=== PATIENT | male | born 1995 | race Caucasian/White ===

== ENCOUNTER 2017-11-07 10:01 | Emergency (ER) | payer OTHER ==
[~2017-11-07] VITALS: Ht 172.7 cm; Wt 81.7 kg
[~2017-11-07 10:01] MED LIST: ATOM10 PO; ATOM60 PO; BENZ100A PO; Benadryl25 MG PO; CARB100ER PO; CARBAMAZEPINE200 M2 PO; CORTISOL PO; CORTISONE PO; Cortef5 MG PO; DEXT30SU PO; DIPH50 PO; DIVA125EC PO; DIVA250EC PO; DIVA500EC PO; HYDCOR10 PO; INTUNIV3 MG PO; IRON150C PO; LEVSOD125 PO; LEVSOD25 PO; LEVSOD50 PO; LOPE2C PO; MELA3 PO; METPRE4DP PO; Motrin600 MG PO; NAPR500 PO; Norco 5-325 Ta1 EACH PO; ONDA4ODT MM; RISP.5 PO; RISP1 PO; Strattera80 MG PO; Synthroid175 MCG PO; TESTOSTERONE; TRAZ100 PO; TRAZ50 PO; VITAMIN D3-ALO1 EACH PO; VITAMIN D31000 UNIT PO; Zithromax250 MG PO; [UNRECOGNIZED DRUG - OTHER] PO; [UNRECOGNIZED DRUG - REMARK]
[2017-11-07] MEDS ORDERED: ANDRODERM1 EAC1 TD (10:37)
[2017-11-07] MEDS ORDERED: CHOL10002 (10:39)
[2017-11-07] MEDS ORDERED: ATOM40 PO (10:39)
[2017-11-07] MEDS ORDERED: INTUNIV3 MG PO (10:40)
[2017-11-07] MEDS ORDERED: DIPH50 PO (10:41)
[2017-11-07] MEDS ORDERED: CARNITOR PO (10:42)
[2017-11-07 12:53] LABS: BASOPHILS ABSOLUTE AUTO 0.03 K/mm3 (0.00-0.23); BASOPHILS PERCENT AUTO 0 % (0-2); EOSINOPHILS PERCENT AUTO 1 % (0-6); Hematocrit 44.2 % (37.0-53.0); Hemoglobin 15.3 g/dL (13.5-17.5); IMMATURE GRAN ABSOLUTE AUTO 0.01 K/mm3 (0.00-0.10); IMMATURE GRAN PERCENT AUTO 0 % (0-1); LYMPHOCYTES ABSOLUTE AUTO 2.95 K/mm3 (0.84-5.20); LYMPHOCYTES PERCENT AUTO 42 % (21-46); MONOCYTES ABSOLUTE AUTO 0.74 K/mm3 (0.16-1.47); MONOCYTES PERCENT AUTO 10 % (4-13); Mean Corpuscular HGB 29.4 pg (26.0-34.0); Mean Corpuscular HGB Conc 34.6 g/dL (31.5-36.5); Mean Corpuscular Volume 85 fL (80-100); Mean Platelet Volume 10.2 fL (9.1-12.4); NEUTROPHILS ABSOLUTE AUTO 3.28 K/mm3 (1.96-9.15); NEUTROPHILS PERCENT AUTO 46 % (41-73); Platelet Count 224 K/mm3 (150-400); RDW Coefficient Variation 12.4 % (11.7-14.2); Red Blood Cell Count 5.21 M/mm3 (4.30-5.90); White Blood Cell Count 7.11 K/mm3 (4.00-11.30)
[2017-11-07 13:21] LABS: Alanine Aminotransfer (ALT/SGP 61 U/L (12-78); Albumin, Blood 3.5 g/dL (3.4-5.0); Alk Phos 71 U/L (50-136); Anion Gap 2 mmol/L (6-16); Aspartate Aminotrans (AST/SGOT 29 U/L (12-37); Bilirubin, Total 0.2 mg/dL (0.1-1.0); Blood Urea Nitrogen 13 mg/dL (8-24); Bun/Creatinine Ratio 14.8 (12.0-20.0); CO2, Blood 31 mmol/L (21-32); Chloride, Blood 105 mmol/L (98-108); Creatinine, Blood 0.88 mg/dL (0.60-1.20); Globulin, Blood 3.5 g/dL (2.2-4.0); Glomerular Filtration Rate >60 (60-); Glucose, Blood 78 mg/dL (70-99); Potassium, Blood 4.7 mmol/L (3.5-5.5); Sodium, Blood 138 mmol/L (136-145)
[2017-11-07 14:15] LABS: Valproic Acid 74.9 ug/mL (50.0-100.0)
== END 2017-11-07 14:47 | disposition home or self-care (01) ==
LOC: ER 10:01
PROVIDERS: Emergency Medicine; Physician Assistant
DX: R07.9 Chest pain, unspecified (principal); G40.909 Epilepsy, unspecified, not intractable, without status epilepticus; E72.20 Disorder of urea cycle metabolism, unspecified; Z88.8 Allergy status to other drugs, medicaments and biological substances; Z79.899 Other long term (current) drug therapy
CPT/HCPCS: 36415; 71045; 80053; 80164; 82140; 84484; 85025; 93005; 93010; 99284

== ENCOUNTER 2019-03-07 20:35 | Emergency (ER) | payer OTHER ==
[~2019-03-07] VITALS: Ht 172.7 cm; Wt 86.2 kg
[~2019-03-07 20:35] MED LIST changes: +ANDRODERM1 EAC1 TD; +ATOM40 PO; +CARNITOR PO; +CHOL10002; +LEVSOD100 PO; -Synthroid175 MCG PO
[2019-03-07] MEDS ORDERED: RISP.5 PO (20:59)
[2019-03-07] MEDS ORDERED: ANDRODERM1 EACH TD (21:05)
[2019-03-07] MEDS ORDERED: Prozac20 MG (21:06)
[2019-03-07] MEDS ORDERED: CARNITOR PO (21:06)
[2019-03-07] MEDS ORDERED: LAMO100 PO (21:07)
== END 2019-03-07 22:20 | disposition home or self-care (01) ==
LOC: ER 20:35
DX: F42.9 Obsessive-compulsive disorder, unspecified (principal); Z88.8 Allergy status to other drugs, medicaments and biological substances; Z79.899 Other long term (current) drug therapy
CPT/HCPCS: 99284; Q3014

== ENCOUNTER 2019-06-20 20:37 | Emergency (ER) | payer OTHER ==
[~2019-06-20] VITALS: Ht 172.7 cm; Wt 90.7 kg
[~2019-06-20 20:37] MED LIST changes: +ANDRODERM1 EACH TD; +LAMO100 PO; +Prozac20 MG
[2019-06-20] MEDS ORDERED: DIVA250EC PO ×2 (23:08)
[2019-06-20 23:44] LABS: BASOPHILS ABSOLUTE AUTO 0.08 K/mm3 (0.00-0.23); BASOPHILS PERCENT AUTO 1 % (0-2); EOSINOPHILS ABSOLUTE AUTO 0.12 K/mm3 (0.00-0.68); EOSINOPHILS PERCENT AUTO 1 % (0-6); Hematocrit 46.5 % (37.0-53.0); Hemoglobin 15.5 g/dL (13.5-17.5); IMMATURE GRAN ABSOLUTE AUTO 0.04 K/mm3 (0.00-0.10); IMMATURE GRAN PERCENT AUTO 0 % (0-1); LYMPHOCYTES ABSOLUTE AUTO 3.61 K/mm3 (0.84-5.20); LYMPHOCYTES PERCENT AUTO 38 % (21-46); MONOCYTES ABSOLUTE AUTO 0.82 K/mm3 (0.16-1.47); MONOCYTES PERCENT AUTO 9 % (4-13); Mean Corpuscular HGB 29.7 pg (26.0-34.0); Mean Corpuscular HGB Conc 33.3 g/dL (31.5-36.5); Mean Corpuscular Volume 89 fL (80-100); NEUTROPHILS ABSOLUTE AUTO 4.79 K/mm3 (1.96-9.15); NEUTROPHILS PERCENT AUTO 51 % (41-73); Platelet Count 254 K/mm3 (150-400); RDW Coefficient Variation 12.8 % (11.7-14.2); RDW Standard Deviation 42.4 fL (35.1-46.3); Red Blood Cell Count 5.22 M/mm3 (4.30-5.90); White Blood Cell Count 9.46 K/mm3 (4.00-11.30)
[2019-06-21 00:14] LABS: Alanine Aminotransfer (ALT/SGP 47 U/L (12-78); Albumin, Blood 3.9 g/dL (3.4-5.0); Albumin/Globulin Ratio 1.1 (0.8-1.8); Alk Phos 52 U/L (50-136); Anion Gap 8 mmol/L (6-16); Aspartate Aminotrans (AST/SGOT 18 U/L (12-37); Bilirubin, Total 0.2 mg/dL (0.1-1.0); Blood Urea Nitrogen 15 mg/dL (8-24); Bun/Creatinine Ratio 15.8 (12.0-20.0); CO2, Blood 29 mmol/L (21-32); Calcium, Blood 8.9 mg/dL (8.5-10.1); Chloride, Blood 105 mmol/L (98-108); Creatinine, Blood 0.95 mg/dL (0.60-1.20); Globulin, Blood 3.6 g/dL (2.2-4.0); Glomerular Filtration Rate >60 (60-); Glucose, Blood 90 mg/dL (70-99); Potassium, Blood 4.3 mmol/L (3.5-5.5); Sodium, Blood 142 mmol/L (136-145); Total Protein, Blood 7.5 g/dL (6.4-8.2); Troponin I <0.015 ng/mL (0.000-0.040)
== END 2019-06-21 01:39 | disposition home or self-care (01) ==
LOC: ER 20:37
PROVIDERS: Emergency Medicine
DX: B34.9 Viral infection, unspecified (principal); R07.89 Other chest pain; Z88.8 Allergy status to other drugs, medicaments and biological substances; Z79.899 Other long term (current) drug therapy; F90.9 Attention-deficit hyperactivity disorder, unspecified type; I48.91 Unspecified atrial fibrillation
CPT/HCPCS: 71046; 80053; 83690; 84484; 85025; 93005; 93010; 99284-25

== ENCOUNTER 2019-07-04 09:48 | Emergency (ER) | payer OTHER ==
[~2019-07-04] VITALS: Ht 172.7 cm; Wt 90.7 kg
[2019-07-04 11:19] LABS: BASOPHILS ABSOLUTE AUTO 0.04 K/mm3 (0.00-0.23); BASOPHILS PERCENT AUTO 1 % (0-2); EOSINOPHILS ABSOLUTE AUTO 0.06 K/mm3 (0.00-0.68); EOSINOPHILS PERCENT AUTO 1 % (0-6); Hematocrit 44.5 % (37.0-53.0); IMMATURE GRAN ABSOLUTE AUTO 0.04 K/mm3 (0.00-0.10); IMMATURE GRAN PERCENT AUTO 1 % (0-1); LYMPHOCYTES ABSOLUTE AUTO 2.36 K/mm3 (0.84-5.20); LYMPHOCYTES PERCENT AUTO 29 % (21-46); MONOCYTES ABSOLUTE AUTO 0.69 K/mm3 (0.16-1.47); MONOCYTES PERCENT AUTO 9 % (4-13); Mean Corpuscular HGB Conc 33.7 g/dL (31.5-36.5); Mean Corpuscular Volume 89 fL (80-100); Mean Platelet Volume 9.8 fL (9.1-12.4); NEUTROPHILS ABSOLUTE AUTO 4.83 K/mm3 (1.96-9.15); NEUTROPHILS PERCENT AUTO 60 % (41-73); Platelet Count 222 K/mm3 (150-400); RDW Coefficient Variation 12.8 % (11.7-14.2); RDW Standard Deviation 41.9 fL (35.1-46.3); White Blood Cell Count 8.02 K/mm3 (4.00-11.30)
[2019-07-04 11:32] LABS: Alanine Aminotransfer (ALT/SGP 54 U/L (12-78); Albumin, Blood 3.7 g/dL (3.4-5.0); Alk Phos 42 U/L (50-136); Anion Gap 2 mmol/L (6-16); Aspartate Aminotrans (AST/SGOT 27 U/L (12-37); Bilirubin, Total 0.3 mg/dL (0.1-1.0); Blood Urea Nitrogen 16 mg/dL (8-24); Bun/Creatinine Ratio 15.4 (12.0-20.0); CO2, Blood 30 mmol/L (21-32); Chloride, Blood 106 mmol/L (98-108); Creatinine, Blood 1.04 mg/dL (0.60-1.20); Globulin, Blood 3.6 g/dL (2.2-4.0); Glomerular Filtration Rate >60 (60-); Glucose, Blood 73 mg/dL (70-99); Potassium, Blood 4.2 mmol/L (3.5-5.5); Sodium, Blood 138 mmol/L (136-145); Total Protein, Blood 7.3 g/dL (6.4-8.2); Troponin I <0.015 ng/mL (0.000-0.040)
[2019-07-04] MEDS ORDERED: IBUP600 PO (11:44)
== END 2019-07-04 12:05 | disposition home or self-care (01) ==
LOC: ER 09:48
PROVIDERS: Emergency Medicine
DX: R07.89 Other chest pain (principal); I10 Essential (primary) hypertension; F90.9 Attention-deficit hyperactivity disorder, unspecified type; Z88.4 Allergy status to anesthetic agent; Z79.899 Other long term (current) drug therapy
CPT/HCPCS: 36415; 71046; 80053; 84484; 85025; 93005; 93010; 99285-25

== ENCOUNTER 2022-01-28 21:21 | Emergency (ER) | payer MEDICARE, OTHER ==
[~2022-01-28] VITALS: Ht 172.7 cm; Wt 88.9 kg
[~2022-01-28 21:21] MED LIST changes: +IBUP600 PO
[2022-01-28 21:44] LABS: BASOPHILS ABSOLUTE AUTO 0.06 K/mm3 (0.00-0.23); BASOPHILS PERCENT AUTO 1 % (0-2); EOSINOPHILS ABSOLUTE AUTO 0.02 K/mm3 (0.00-0.68); EOSINOPHILS PERCENT AUTO 0 % (0-6); Hematocrit 46.6 % (37.0-53.0); IMMATURE GRAN ABSOLUTE AUTO 0.03 K/mm3 (0.00-0.10); IMMATURE GRAN PERCENT AUTO 0 % (0-1); LYMPHOCYTES ABSOLUTE AUTO 2.26 K/mm3 (0.84-5.20); LYMPHOCYTES PERCENT AUTO 26 % (21-46); MONOCYTES ABSOLUTE AUTO 0.94 K/mm3 (0.16-1.47); MONOCYTES PERCENT AUTO 11 % (4-13); Mean Corpuscular HGB 29.7 pg (26.0-34.0); Mean Corpuscular HGB Conc 34.3 g/dL (31.5-36.5); Mean Corpuscular Volume 87 fL (80-100); Mean Platelet Volume 9.5 fL (9.1-12.4); NEUTROPHILS ABSOLUTE AUTO 5.52 K/mm3 (1.96-9.15); NEUTROPHILS PERCENT AUTO 63 % (41-73); Platelet Count 232 K/mm3 (150-400); RDW Coefficient Variation 12.5 % (11.7-14.2); RDW Standard Deviation 39.1 fL (35.1-46.3); Red Blood Cell Count 5.39 M/mm3 (4.30-5.90); White Blood Cell Count 8.83 K/mm3 (4.00-11.30)
[2022-01-28 22:00] LABS: Alanine Aminotransfer (ALT/SGP 53 U/L (12-78); Albumin, Blood 3.8 g/dL (3.4-5.0); Albumin/Globulin Ratio 1.1 (0.8-1.8); Alk Phos 45 U/L (50-136); Anion Gap 8 mmol/L (6-16); Aspartate Aminotrans (AST/SGOT 21 U/L (12-37); Bilirubin, Total 0.3 mg/dL (0.1-1.0); Blood Urea Nitrogen 12 mg/dL (8-24); Bun/Creatinine Ratio 11.9 (12.0-20.0); CO2, Blood 25 mmol/L (21-32); Calcium, Blood 9.1 mg/dL (8.5-10.1); Chloride, Blood 105 mmol/L (98-108); Creatinine, Blood 1.01 mg/dL (0.60-1.20); Globulin, Blood 3.5 g/dL (2.2-4.0); Glomerular Filtration Rate >60 (60-); Glucose, Blood 127 mg/dL (70-99); Sodium, Blood 138 mmol/L (136-145); Total Protein, Blood 7.3 g/dL (6.4-8.2)
[2022-01-28 23:05] LABS: Source, Urine Clean Catch
[2022-01-28 23:08] LABS: Bilirubin, Urine Neg (Neg); Blood, Urine 5+ (Neg); Glucose Qualitative, Urine Neg (Neg); Ketones, Urine Neg (Neg); Leukocyte Esterase, Urine 1+ (Neg); Nitrite, Urine Neg (Neg); Protein, Urine 2+ (Neg); Specific Gravity, Urine 1.015 (1.003-1.022); Urobilinogen, Urine NORM (Normal)
[2022-01-28 23:21] LABS: Amorphous Mod (0-Heavy); Appearance, Urine Cloudy (Clear); Bacteria Few /hpf; Color, Urine Yellow (P-Yellow); Red Blood Cells, Urine TNTC /hpf (0-2); Squamous Epithelial Cells Rare /hpf (Few)
[2022-01-29] MEDS ORDERED: TAMS.4ER PO (00:15)
== END 2022-01-29 00:46 | disposition home or self-care (01) ==
LOC: ER 21:21
PROVIDERS: Physician Assistant
DX: N13.2 Hydronephrosis with renal and ureteral calculous obstruction (principal); I48.91 Unspecified atrial fibrillation; Z88.8 Allergy status to other drugs, medicaments and biological substances; Z79.899 Other long term (current) drug therapy
CPT/HCPCS: 36415; 74176; 80053; 81001; 83690; 85025; 87086; 96374; 99284-25; A9270; J1885

== ENCOUNTER 2025-01-07 09:19 | Emergency (ER) | payer OTHER, MEDICARE ==
[~2025-01-07] VITALS: Ht 175.3 cm; Wt 95.2 kg
[~2025-01-07 09:19] MED LIST changes: +ANDRODERM1 EAC3; +Clonazepam0.125 MG; +ERGO400; +FERSU90EL; +FLUO10; +OMEP20ER; +TAMS.4ER PO
[2025-01-07 09:26] VITALS: BP 100/63
[2025-01-07] MEDS ORDERED: Ondansetron 4 MG SoluTab SL ONE (09:40)
[2025-01-07] MEDS ORDERED: ONDA4ODT MM (10:57)
== END 2025-01-07 11:15 | disposition home or self-care (01) ==
LOC: ER 09:19
DX: S06.0X0A Concussion without loss of consciousness, initial encounter (principal); F84.0 Autistic disorder; Z88.8 Allergy status to other drugs, medicaments and biological substances; Z79.890 Hormone replacement therapy; Z79.899 Other long term (current) drug therapy; Z59.89 Other problems related to housing and economic circumstances; W01.190A Fall on same level from slipping, tripping and stumbling with subsequent striking against furniture, initial encounter
CPT/HCPCS: 70450; 99284-25; A9270

== ENCOUNTER 2025-02-17 11:12 | Day surgery (SDC) | payer MEDICARE, OTHER ==
[~2025-02-17] VITALS: Ht 175.3 cm; Wt 81.8 kg
[~2025-02-17 11:12] MED LIST changes: +Lactated Ringer's 1,000 ML IV ONE
[2025-02-17 11:24] VITALS: BP 125/76
[2025-02-17] MEDS ORDERED: Lidocaine HCl 4% 5 ML SDA ONE (11:30)
[2025-02-17] MEDS ORDERED: AMAN100 PO (11:30)
[2025-02-17] MEDS ORDERED: VENL25 PO (11:30)
== END 2025-02-17 12:04 | disposition home or self-care (01) ==
LOC: ORSCSDS 11:12
DX: K22.70 Barrett's esophagus without dysplasia (principal); Z53.9 Procedure and treatment not carried out, unspecified reason
CPT/HCPCS: J2003; J7120